=== PATIENT | male | born 1955 | race Caucasian/White ===

== ENCOUNTER → 2024-07-26 08:42 | Outpatient (REF) | payer OTHER, SELFPAY | LOC: MRI 3T 08:42 | PROVIDERS: ATTENDING PHYSICIAN Urology; FAMILY PHYSICIAN Family Medicine | DX: R97.20 Elevated prostate specific antigen [PSA] (principal) | CPT/HCPCS: 72197; A9575 ==

== ENCOUNTER 2024-10-21 10:12 | Emergency (ER) | payer OTHER, SELFPAY ==
[2024-10-21 10:15] VITALS: BP 133/81
[2024-10-21 11:40] VITALS: BMI 23.8
--- NOTE | 2024-10-21 11:51 | ED.GENMED ---
History of Present Illness
General
Chief Complaint: Extremity Pain (non-traumatic)
Time Seen by Provider: 10/21/24 11:08
History of Present Illness
History of Present Illness:
69-year-old male with history of hyperlipidemia presents to the emergency department for evaluation of intermittent myalgias and paresthesias to bilateral arms for the past 2 to 3 days. He states the symptoms began with intense hand and forearm
pain bilaterally when he woke up in the morning, this began the day after painting and performing substantial amounts of overhead reaching. [place] this morning that his hands are weak which prompted her to come to the ED. Tylenol does alleviate the
pain however paresthesias and weakness persist. [place] leg tingling this morning but this is since resolved, denies any leg weakness. No recent fevers or chills. No chest pain or shortness of breath. No recent vaccinations in the past 4 to 8 weeks.
Review of Systems
Review of Systems
Allergies reviewed?: Yes
All Other Systems: ROS reviewed and negative except as documented in HPI and ROS
Phy Exam
Physical Exam
Physical Exam:
GEN: Well appearing, NAD, WDWN
HEENT: Oral mucosa moist, no scleral icterus, no nasal congestion
Cardiac: Regular rate
Lung: No respiratory distress, no tachypnea
MSK: No gross deformity or injuries
Skin: Good color, no pallor or jaundice, no rashes
Neuro: AO x3; CN II-XII grossly intact. BUE strength 5/5 in all taveras, sensation intact and symmetric. BLE strength 5/5 in all taveras, sensation intact and symmetric. BL tricep and brachioradialis reflexes 2+
Psych: Calm, cooperative
Course
Orders/Labs/Results
Orders:
Orders
10/21/24 11:26
CT Cervical Spine W/o Iv Contr Urgent
Comment:
Reason For Exam: neck pain, BL arm weakness
10/21/24 11:27
Ketorolac [Toradol] 15 mg IV NOW STA
10/21/24 11:55
Complete Blood Count/With Diff Urgent
Comprehensive Metabolic Panel Urgent
10/21/24 13:46
Dexamethasone Sod Phosphate [Decadron] 10 mg IV NOW STA
Abnormal Lab Results
10/21/24
11:55
MCH 31.5 H pg
(27.0-31.0)
Absolute Neuts (auto) 7.8 H 10^3/uL
(1.4-6.5)
Absolute Lymphs (auto) 1.1 L 10^3/uL
(1.2-3.4)
Neutrophils % 82.6 H %
(42.2-75.2)
Lymphocytes % 11.9 L %
(20.5-51.1)
BUN 22 H mg/dl
(9-20)
Glucose 124 H mg/dl
(70-99)
10/21/24 11:55
10/21/24 11:55
Vital Signs
Initial and Last Documented VS:
Initial Vital Signs
Pulse Resp BP Pulse Ox
62 16 133/81 99
10/21/24 10:15 10/21/24 10:15 10/21/24 10:15 10/21/24 10:15
Last Documented Vital Signs
Temp Pulse Resp BP Pulse Ox
97.4 F 58 16 135/76 100
10/21/24 14:27 10/21/24 14:27 10/21/24 14:27 10/21/24 14:27 10/21/24 14:27
MDM/Problems Addressed
MDM/Problems Addressed:
Patient's neurologic exam is reassuring with intact reflexes and strength of bilateral upper extremities. Given that he reports pain to the trapezius region bilaterally in association with these radicular symptoms I favor cervical radiculopathy or
brachial neuritis as a cause as opposed to a demyelinating condition or spinal cord pathology such as transverse myelitis. He does have significant degenerative disc disease in the spine. No fever or leukocytosis, at this time I do not feel an LP
will be of any benefit. Additionally do not feel urgent MRI is indicated given normal neurologic exam. Will start a course of corticosteroids for potential degenerative spine disease related to disc herniations versus foraminal stenosis, recommend
outpatient follow-up with his primary care physician
*Pulse Oximetry
SaO2: 99
Oxygen Mode of Delivery: Room air
Patient hypoxic: no
*Critical Care Note
Total Time (30-74mins, 75-104mins- exclusive of procedures): Not Applicable
ED Attending Note
-
Portions of this chart may have been created with voice recognition software.� Occasional wrong word or��sound alike� substitutions may have occurred due to the inherent limitations of voice recognition software.
Discharge Plan
Departure
Patient Disposition: Home (Routine Discharge)
Date of Disposition: 10/21/24
Time of Disposition: 13:45
Patient with high blood pressure during this ER visit?: No
Discharge Problem:
Cervical radiculopathy
Instructions: Radiculopathy of the neck and back (including sciatica)
Prescriptions:
New
methylprednisolone [Medrol (Mainor)] 4 mg tablets,dose pack
See Rx Instructions .ROUTE .COMPLEX Qty: 21 0RF
Rx Instructions:
orally per package directions
Referrals:
Julien Mitchell DO [Family Provider, Family Practice]
Activity Restrictions/Additional Instructions:
If your symptoms or not improving in the next 48 hours please discuss an outpatient MRI with your primary care physician. If you develop severe weakness of the extremities and are not able to use them appropriately return to the emergency
department immediately
Interventions
Interventions:
*Risk Screen - Suicide Last Done: 10/21/24 11:40
*General Assessment Last Done: 10/21/24 11:40
*Neglect/Abuse Screening Last Done: 10/21/24 11:40
*ED- Fall Risk Assessment Last Done: 10/21/24 11:40
*ED COVID-19 Vaccine History Last Done: 10/21/24 11:40
*Nursing Disposition Last Done: 10/21/24 14:27
ED-Skin Assessment Last Done: 10/21/24 11:40
ED-Peripheral Vascular Assessment Last Done: 10/21/24 11:40
ED-Musculoskeletal Assessment Last Done: 10/21/24 11:40
Discharge Date and Time
Discharge Date/Time: 10/21/24 14:20
Print Language: YI
[2024-10-21 11:53] VITALS: BP 131/79
[2024-10-21] MEDS: TORADOL 15 MG IV (11:53)
[2024-10-21 12:08] LABS: Hematocrit 48.2 % (39.0-52.0); Hemoglobin 16.4 g/dL (13.0-18.0); Mean Corp Hgb Conc. 34.0 g/dL (33.0-37.0); Mean Corpuscular Volume 92.7 fL (80.0-94.0); Nucleated Red Blood Cells % 0 % (-); Platelet Count 162 10^3/uL (130-400); Red Cell Dist. Width 13.5 % (11.5-14.5)
[2024-10-21 12:35] LABS: ALT (SGPT) 24 U/L (0-50); AST (SGOT) 50 U/L (17-59); Albumin 4.6 g/dl (3.5-5.0); Alkaline Phosphatase 86 U/L (38-126); Blood Urea Nitrogen 22 mg/dl (9-20); Calcium 9.7 mg/dl (8.4-10.2); Carbon Dioxide 24 mmol/L (22-30); Chloride 107 mmol/L (98-107); Estimated Creatinine Clearance 93 ml/min; Glucose 124 mg/dl (70-99); Potassium 4.3 mmol/L (3.5-5.1); Sodium 138 mmol/L (135-145); Total Protein 7.4 g/dl (6.3-8.2); eGFR > 60.00
[2024-10-21 13:09] VITALS: BP 120/78
[2024-10-21 14:00] VITALS: BP 135/76
[2024-10-21] MEDS: DECADRON 10 MG IV (14:03)
--- NOTE | 2024-10-21 14:26 | EDRN ---
Reviewed discharge instructions with patient. Verbalized understanding. Taken to lobby in wheelchair.
[2024-10-21 14:27] VITALS: BP 135/76
== END 2024-10-21 14:20 | disposition home or self-care (01) ==
LOC: EMR 10:12
PROVIDERS: Physician Assistant; EMERGENCY PHYSICIAN Emergency Medicine; FAMILY PHYSICIAN Family Medicine
DX: M47.22 Other spondylosis with radiculopathy, cervical region (principal); M79.18 Myalgia, other site; M62.81 Muscle weakness (generalized); E78.5 Hyperlipidemia, unspecified; Z91.048 Other nonmedicinal substance allergy status
CPT/HCPCS: 99284; 96374; 96375; 72125; 80053; 85025